=== PATIENT | female | born 1955 | race American Indian/Alaskan Native ===

== ENCOUNTER 2017-04-18 11:20 | Emergency (ER) | payer OTHER ==
--- NOTE | 2017-04-18 12:10 | Emergency Department Report ---
Chief Complaint: Skin Rash Stated Complaint: RASH Time Seen by Provider: 04/18/17 12:08 - HPI History of Present Illness: PT c/o feeling weak x 1 week. PT was seen by PCP last week and had labs - does not have results yet. PT states she also has a rash - ROS Review of Systems: + chill/fever + rash + generalized weakness - Exam Physical Exam: PT looks wel, non toxic. erythematous rash noted to extremities MSE screening note: Focused history and physical exam performed. Due to findings the following was ordered: labs ED Disposition for MSE Condition: Stable
[2017-04-18 12:12] VITALS: BP 156/91
[2017-04-18 13:14] LABS: Hematocrit 35.2 % (30.3-42.9); Hemoglobin 11.4 gm/dl (10.1-14.3); Mean Corpuscular HGB Conc 33 % (30-34); Mean Corpuscular Volume 76 fl (79-97); Platelet Count 238 K/mm3 (140-440); Red Blood Count 4.64 M/mm3 (3.65-5.03); Red Cell Distribution Width 14.9 % (13.2-15.2); White Blood Count 5.7 K/mm3 (4.5-11.0)
[2017-04-18 13:16] LABS: Alanine Aminotransferase 32 units/L (7-56); Albumin 3.7 g/dL (3.9-5); Alkaline Phosphatase 49 units/L (35-129); Anion Gap 19 mmol/L; BUN/Creatinine Ratio 11.11; Blood Urea Nitrogen 10 mg/dL (7-17); Calcium 9.2 mg/dL (8.4-10.2); Carbon Dioxide 22 mmol/L (22-30); Chloride 99.8 mmol/L (98-107); Glucose 102 mg/dL (65-100); Potassium 3.6 mmol/L (3.6-5.0); Sodium 137 mmol/L (137-145); Total Protein 7.4 g/dL (6.3-8.2)
[2017-04-18 13:23] LABS: Mean Corpuscular Hemoglobin 25 pg (28-32)
[2017-04-18 13:44] LABS: INR 0.98 (0.87-1.13)
[2017-04-18 16:46] LABS: Basophils % (Manual) 0 % (0.0-1.8); Blastocytes % (Manual) 0 %; Eosinophils % (Manual) 0 % (0.0-4.3)
[2017-04-18 16:47] LABS: Diff Status Complete; Elliptocytes Few; Hypochromasia 1+
== END 2017-04-18 19:15 | disposition left against medical advice (07) ==
LOC: ED 11:20
DX: R21 Rash and other nonspecific skin eruption (principal); R53.1 Weakness; Z53.21 Procedure and treatment not carried out due to patient leaving prior to being seen by health care provider
CPT/HCPCS: 36415; 80053; 85007; 85025; 85610; 85730